=== PATIENT | male | born 1945 | race African-American/Black ===

== ENCOUNTER 2023-01-25 11:42 | Emergency (ER) | payer MEDICARE, OTHER | END 2023-01-25 13:05 | disposition home or self-care (01) | LOC: MADERS 11:42 | DX: U07.1 COVID-19 (principal); J06.9 Acute upper respiratory infection, unspecified; I10 Essential (primary) hypertension; F17.220 Nicotine dependence, chewing tobacco, uncomplicated | CPT/HCPCS: 71046; 87635; 87804 ==